=== PATIENT | female | born 2000 | race Two or more races ===

== ENCOUNTER 2023-09-12 21:43 | Emergency (ER) | payer OTHER ==
[~2023-09-12] VITALS: Ht 165.1 cm; Wt 54.4 kg
== END 2023-09-12 23:45 | disposition home or self-care (01) ==
LOC: ER 21:44
DX: S00.03XA Contusion of scalp, initial encounter (principal); X58.XXXA Exposure to other specified factors, initial encounter; Y93.79 Activity, other specified sports and athletics; Y92.39 Other specified sports and athletic area as the place of occurrence of the external cause; Y99.8 Other external cause status; Z88.5 Allergy status to narcotic agent